=== PATIENT | male | born 1950 ===

== ENCOUNTER 2025-02-12 11:32 | Outpatient (AMB) | payer MEDICARE, SELFPAY ==
[2025-02-12 11:41] VITALS: BMI 31.4
--- NOTE | 2025-02-12 11:41 | A.PHYSOV_ITS ---
Vital Signs 02/12/25 11:41 Height 5 ft 11 in Weight 225 lb BMI 31.4 Intake Visit Reasons: Back and leg pain Intake Note: Patient is a 74 year old male here for back and leg pain. Submarine Operator Required: No Allergies hydrochlorothiazide Allergy (Unknown, Verified 02/12/25 11:40) Unknown HPI Comments Details: Mr. Rosales is a 74-year-old male seen in evaluation today for severe spinal canal stenosis at L4-5 as well as lumbar radiculitis. Patient underwent his last bilateral L4 TFESI 08/28/2023 with over a year's worth of greater than 50% reduction of his pain. Patient reports that his pain had returned despite performing his physician directed home exercise plan. He has 7/10 low back pain with radiation into bilateral lower extremities in the L4 distribution. Patient has to take frequent breaks with activity. Patient has been using Percocet sparingly for pain. He is requesting a refill. He denies any incontinence, saddle anesthesia urinary retention. [facility] Surgical History (Updated 02/07/25 @ 07:44 by Mónica Harris MA) History of carpal tunnel surgery H/O shoulder surgery H/O: knee surgery History of back surgery Social History (Updated 02/07/25 @ 07:43 by Mónica Harris MA) Alcohol intake: current Alcohol intake frequency: holidays/special occasions only Patient Tobacco Use Status: Never used Tobacco Use of substances other than those prescribed or required for medical reasons: No Current occupational status: employed Review of Systems Narrative Low back pain with radiculopathy. No incontinence, saddle anesthesia urinary retention. Physical Exam Exam Exam: Lumbar Spine: Examination of his lumbar spine, there is no visible swelling or deformity. He is tender to lower lumbar facets. He is otherwise nontender. Full range of motion was lumbar spine. He does have an increase in pain with facet loading. Special Tests: Lhermittes sign was negative Heel Toe walk is normal Left straight leg raise: Negative Right straight leg raise: Negative Special tests Santos test is negative Ganslen's test is negative SI Joint compression test negative Lorena test negative Piriformis stretch is negative Lower Extremities: Full range of motion bilateral lower extremities. No calf pain or edema. Neuro: Sensation: Intact to lower extremities bilaterally Strength L2 (Psoas): 5/5 on the left and 5/5 on the right. L3 (Quads): 5/5 on the left and 5/5 on the right. L4 (Ant tibialis): 5/5 on the left and 5/5 on the right. L5 (EHL) 5/5 on the left and 5/5 on the right. S1 (Gastroc): 5/5 on the left and 5/5 on the right. DTR L4: (Patellar) Left 1 Right 1 S1: (Achilles) Left 1 Right 1 Babinski Downgoing No pathologic clonus. No involuntary movement. Vital Signs: BMI result Body Mass Index 31.4 Assessment & Plan Assessment & Plan (1) Lumbar radiculopathy: Code(s): M54.16 - Radiculopathy, lumbar region Category: Medical (2) Lumbar spinal stenosis: Code(s): M48.061 - Spinal stenosis, lumbar region without neurogenic claudication Category: Medical Qualifiers: Neurogenic claudication status: without neurogenic claudication Qualified Code(s): M48.061 - Spinal stenosis, lumbar region without neurogenic claudication Plan Mr. Rosales is a 74-year-old male seen in evaluation today for spinal canal stenosis as well as lumbar radiculitis. 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 Patient responded very well in August of 2023 with 50% reduction of his pain for over a year from bilateral L4 TFESI. Patient's symptoms have returned despite performing his physician directed home exercise plan. Patient is requesting refill of pain medication as well as repeat bilateral L4 TFESI. We will obtain prior authorization for his injection contact him once we have done so. I reviewed his mass pat there are no red flags. Patient will use the medication sparingly. He will not operate any heavy machinery while taking Percocet. Thank you for allowing me to participate in the care of your patient. Orders: Referrals Physiatry Procedure Notification M54.16 - Radiculopathy, lumbar region Medications: New oxycodone-acetaminophen 5-325 mg (Percocet) Partial Fill upon patient request. 1 tab PO Q6H PRN 28 tabs 0RF pain 7 days M48.061 - Spinal stenosis, lumbar region without neurogenic claudication, M54.16 - Radiculopathy, lumbar region Coding Level of Care Code Est Pt Level 4 (12031) Diagnoses Lumbar radiculopathy M54.16 Spinal stenosis of lumbar region without neurogenic claudication M48.061 Neurogenic claudication status: without neurogenic claudication
--- OUTSIDE RECORDS SUMMARY | 2025-02-12 13:16 | XMS_ITS | Clinical Summary ---
Author Organization [facility] Address [address] [place] [address] Care Team Providers Care Tool Design Draftsperson Name Role Phone Igor Harman MD Primary Care Provider Allergies Active Allergy Reactions Criticality Noted Date Comments Hydrochlorothiazide Other (See Comments) Low 2016 cramps Medications amLODIPine (NORVASC) 5 MG tablet amlodipine 5 mg tablet TAKE 1 TABLET BY MOUTH EVERY DAY Active atorvastatin (LIPITOR) 10 MG tablet atorvastatin 10 mg tablet TAKE 1 TABLET BY MOUTH EVERY DAY Active losartan (COZAAR) 50 MG tablet losartan 50 mg tablet TAKE 1 TABLET BY MOUTH EVERY DAY Active OMEprazole (PriLOSEC) 20 MG capsule omeprazole 20 mg capsule,delayed release TAKE 1 CAPSULE BY MOUTH EVERY DAY Active naproxen (NAPROSYN) 500 MG tablet naproxen 500 mg tablet TAKE 1 TABLET BY MOUTH TWICE A DAY WITH MEALS Active traZODone (DESYREL) 100 MG tablet trazodone 100 mg tablet Active albuterol (PROVENTIL HFA; VENTOLIN HFA) 108 (90 Base) MCG/ACT inhalerIndicati ons:Viral URI with cough,Wheeze Inhale 2 puffs every 4 (four) hours as needed for wheezing. 18 g 3 Active Additional Information Patient not taking.Reported on 12/16/2024 fluticasone (FloVENT HFA) 110 mcg/puff inhalerIndicati ons:Viral URI with cough,Wheeze Inhale 1 puff 2 (two) times a day. 12 g 3 Active guaiFENesin-cod eine liquidIndicatio ns:Viral upper respiratory tract infection Take 5 mL by mouth every 4 (four) hours as needed for cough. 120 mL 3 Active Additional Information Patient not taking.Reported on 12/16/2024 metoPROLOL SUCCINATE (TOPROL-XL) 25 MG 24 hr tablet Take 25 mg by mouth daily. Active albuterol (PROVENTIL HFA; VENTOLIN HFA) 108 (90 Base) MCG/ACT inhalerIndicati ons:Bronchitis Inhale 2 puffs 4 times daily (every 6 hours) as needed for wheezing. 1 each 5 Active Additional Information Patient not taking.Reported on 12/16/2024 meclizine (ANTIVERT) 25 MG tabletIndicatio ns:Vertigo Take 1 tablet (25 mg total) by mouth 3 (three) times a day as needed for dizziness. 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 Mitral regurgitation 03/02/2023 Overview (06/20/2024): Moderate 03/08 Insomnia 05/27/2020 Vertigo 05/27/2020 Spinal stenosis 06/05/2015 Burning sensation of foot 07/29/2014 Overview (06/20/2024): Numbness bottom both feet Knee pain 06/12/2014 CTS (carpal tunnel syndrome) 01/24/2014 Hypercholesteremia 05/25/2013 Overview (06/20/2024): 05/27 letter sent Diverticulitis 11/06/2009 GERD (gastroesophageal reflux disease) 0 Overview (06/20/2024): EGD 02/04 Hypertension 11/06/2009 Overview (06/20/2024): Intolerant hydrochlorothiazide (leg cramps) ?intol lisinipril 40 Encounters Date Type Department Care Team Description 12/16/2024 2:30 PM EST Office Visit [facility] [address] [id number] Gentry Bello MD Devitt, Anna C, APRN Vertigo (Primary Dx); Acute bacterial sinusitis from Last 3 Months Social History Tobacco Use Types Packs/Day Years Used Date Smoking Tobacco: Never Smokeless Tobacco: Never Alcohol Use Standard Drinks/Week Comments Not Currently 0 (1 standard drink = 0.6 oz pur e alcohol) Sex and Gender Information Value Date Recorded Sex Assigned at Not on file Legal Sex Male 12:57 PM EDT Gender Identity Not on file Sexual Orientation Not on file Last Filed Vital Signs Vital Sign Reading Time Taken Comments Blood Pressure 141/87 12/16/2024 2:41 PM EST Pulse 86 12/16/2024 2:41 PM EST Temperature 36.7 C (98 F) 12/16/2024 2:41 PM EST Respiratory Rate 16 12/16/2024 2:41 PM EST Oxygen Saturation 97% 12/16/2024 2:41 PM EST Inhaled Oxygen Concentration - - Weight 102 kg (225 lb) 06/20/2024 11:45 AM EDT Height 180.3 cm (5' 11 ) 06/20/2024 11:45 AM EDT Body Mass Index 31.38 06/20/2024 11:45 AM EDT Plan of Treatment Health Maintenance Due Date Last Done Comments Advance Care Planning 1950 Hepatitis C Virus Screening 1950 DTaP/Tdap/Td Vaccines (1 - Tdap) 12/29/1971 Pneumococcal Vaccines 50+ (1 of 2 - PCV) 12/29/1971 Colonoscopy 1997 RSV Vaccine 50 years and older and Patients (1 - Risk 50-74 years 1-dose series) 2002 Zoster (Shingles) Vaccine (1 of 2) 2002 Influenza Vaccine 09/13/2024 11/28/2023, , 10/25/2022, Additional history exists COVID-19 Vaccine ( season) 2024 10/30/2022, 12/10/2021 Hepatitis B Vaccines Aged Out No long er eligible based on patient's age to complete this topic Insurance [facility] MEDICARE MEDICARE PART A & B Care Teams Tool Design Draftsperson Relationship Specialty Start Date End Date Igor Harman MD [address] [place] [address] AM[place] Pichardo [id number] PCP - General 06/20/24
--- OUTSIDE RECORDS SUMMARY | 2025-02-12 13:16 | XMS_ITS ---
Author Name [facility] Organization Unknown History of Medication Use Medication Directions Dispensed Refills Start Date End Date Stat us meclizine (ANTIVERT) 25 MG tablet Take 1 tablet (25 mg total) by mouth 3 (three) times a day as needed for dizziness. 12/16/2024 active azithromycin (ZITHROMAX) 250 MG tablet Take 2 tablets by mouth on day 1 followed by 1 tablet by mouth daily on days 2 through 5. 06/20/2024 active benzonatate (TESSALON) 200 MG capsule Take 1 capsule (200 mg total) by mouth 3 (three) times a day as needed for cough. 06/20/2024 active amoxicillin-clavula elio (AUGMENTIN) 875-125 MG per tablet Take 1 tablet by mouth 2 (two) times a day. 03/29/2024 active predniSONE (DELTASONE) 20 MG tablet Take 1 tablet (20 mg total) by mouth daily. In the AM With food. 03/29/2024 active metoPROLOL SUCCINATE (TOPROL-XL) 25 MG 24 hr tablet Take 25 mg by mouth daily. 03/25/2024 active guaiFENesin-codeine liquid Take 5 mL by mouth every 4 (four) hours as needed for cough. 07/06/2022 active albuterol (PROVENTIL HFA; VENTOLIN HFA) 108 (90 Base) MCG/ACT inhaler Inhale 2 puffs 4 times daily (every 6 hours) as needed for wheezing. 07/04/2022 active fluticasone (FloVENT HFA) 110 mcg/puff inhaler Inhale 1 puff 2 (two) times a day. 07/04/2022 active proMETHAZINE-dextro methorphan (proMETHAZINE-DM) 6.25-15 MG/5ML syrup Take 5 mL by mouth nightly as needed for cough. 07/04/2022 active amoxicillin (AMOXIL) 875 MG tablet Take 1 tablet (875 mg total) by mouth 2 (two) times a day. 05/29/2022 07/04/2022 active predniSONE (DELTASONE) 20 MG tablet Take 2 tablets (40 mg total) by mouth daily. With food. 05/23/2022 06/26/2024 active amLODIPine (NORVASC) 5 MG tablet amlodipine 5 mg tablet TAKE 1 TABLET BY MOUTH EVERY DAY active atorvastatin (LIPITOR) 10 MG tablet atorvastatin 10 mg tablet TAKE 1 TABLET BY MOUTH EVERY DAY active losartan (COZAAR) 50 MG tablet losartan 50 mg tablet TAKE 1 TABLET BY MOUTH EVERY DAY active naproxen (NAPROSYN) 500 MG tablet naproxen 500 mg tablet TAKE 1 TABLET BY MOUTH TWICE A DAY WITH MEALS active OMEprazole (PriLOSEC) 20 MG capsule omeprazole 20 mg capsule,delayed release TAKE 1 CAPSULE BY MOUTH EVERY DAY active traZODone (DESYREL) 100 MG tablet trazodone 100 mg tablet active Allergies Allergen Reaction Severity Comment Documented Date Source Statu s HYDROCHLOROTHIAZIDE OTHER (SEE COMMENTS) cramps 01/20/2017 [facility] active Problems Problem Status Onset Date Problem Type Date of Resolution Source Hypercholesteremia active 2013-05-25 ProblemAct [facility] Diverticulitis active 2009-11-[address] Frequent PVCs active 2024-05-14 ProblemAct [facility] Knee pain active 2014-06-12 ProblemAct [facility] Mitral regurgitation active 2023-03-02 ProblemAct [facility] Trigger finger, left middle finger active 2024-05-28 ProblemAct [facility] Hypertension active 2009-11-06 ProblemAct [facility] Insomnia active 2020-05-27 ProblemAct [facility] CTS (carpal tunnel syndrome) active 2014-01-24 ProblemAct [facility] Burning sensation of foot active 2014-07-29 ProblemAct [facility] CTS (carpal tunnel syndrome) active 2014-01-24 ProblemAct [facility] Class 1 obesity active 2024-06-20 ProblemAct [facility] Vertigo active 2020-05-27 ProblemAct [facility] GERD (gastroesophageal reflux disease) active 2009-11-06 ProblemAct [facility] Spinal stenosis active 2015-06-05 ProblemAct [facility] Acute bacterial sinusitis active EncounterDiagnosisAct [facility] Encounters Encounter Type Encounter Reason Primary Diagnosis Location Date Ambulatory Dizziness Dizziness [facility] 12/16/2024 Ambulatory Cough Cough [facility] 06/20/2024 Ambulatory Acute sinusitis, unspecified Acute sinusitis, unspecified [facility] 03/29/2024 Ambulatory Low back pain, unspecified Low back pain, unspecified [facility] 09/15/2023 Ambulatory Contact with and (suspected) exposure to covid-19 [facility] 07/04/2022 Ambulatory Acute suppurativ e otitis media without spontaneous rupture of ear drum, right ear [facility] 05/29/2022 Ambulatory Other specified disorders of eustachian tube, bilateral [facility] 05/23/2022 Care Team Organization Name Specialty Phone Email Start Date End Da te [facility] 12/17/2024 01/14/2025 [facility] 12/16/2024 [facility] Igor Con[facility] 06/20/2024 01/14/2025 [facility] 06/20/2024 [facility] PCP,No Primary Care 05/29/2022 01/14/2025 [facility] NO PCP Primary Care 05/29/2022 05/29/2022 [facility] 05/23/2022 01/14/2025 [facility] 05/23/2022 05/23/2022 [facility] Igor [facility] [place] [facility] 12/21/2021 10/02/2023
--- OUTSIDE RECORDS SUMMARY | 2025-02-12 13:16 | XMS_ITS | Clinical Summary ---
Author Organization [facility] [address] [facility] lding Address [address] [facility] [place] [address] Phone Care Team Providers Care Board Certified Arts Therapist Name Role Phone Radha Harman MD Primary Care Provider [phone] Allergies Active Allergy Reactions Criticality Noted Date Comments Hydrochlorothiazide 01/20/2017 cramps Medications omeprazole (PriLOSEC) [address] capsule Take 1 capsule (20 mg total) by mouth 1 (one) time each day. 4 Active losartan (COZAAR) 50 mg tablet Take 1 tablet (50 mg total) by mouth 1 (one) time each day. 90 tablet 5 Active metoprolol succinate (TOPROL-XL) 200 mg 24 hr tablet Take 1 tablet (200 mg total) by mouth 1 (one) time each day. Do not crush or chew. Active apixaban (ELIQUIS) 5 mg tablet Take 1 tablet (5 mg total) by mouth 2 (two) times a day. Active traZODone (DESYREL) 100 mg tablet TAKE 1-1&1/2 TABLETS BY MOUTH AT BEDTIME NEEDED FOR SLEEP. 135 tablet 1 5 Active atorvastatin (LIPITOR) 10 mg tablet TAKE 1 TABLET BY MOUTH EVERY DAY 90 tablet 5 Active amLODIPine (NORVASC) 5 mg tablet TAKE 1 TABLET BY MOUTH EVERY DAY 90 tablet 1 5 Active atorvastatin (LIPITOR) 10 mg tablet TAKE 1 TABLET BY MOUTH 1 TIME EACH DAY. 90 tablet 1 5 01/22/20 25 Discontinued amLODIPine (NORVASC) 5 mg tablet Take 1 tablet (5 mg total) by mouth 1 (one) time each day. 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 Pt declines eval 04/23 GERD (gastroesophageal reflux disease) 0 Overview (01/24/2024): EGD 02/04 Hypertension 11/06/2009 Overview (01/24/2024): Intolerant hydrochlorothiazide (leg cramps) ?intol lisinipril 40 Diverticulitis 11/06/2009 Sprain of sacroiliac ligament 09/22/2009 Encounters Date Type Department Care Team Description 12/18/2024 10:30 AM EST Office Visit Adult [address] [phone] Radha Harman MD Hypertension, unspecified type (Primary Dx); Hypercholesteremia; Vertigo; Atrial fibrillation, unspecified type (CMS/HCC V24, CMS/HCC V28); Screening for malignant neoplasm of prostate 12/13/2024 Telephone Adult [address] [phone] Radha Harman MD from Last 3 Months Immunizations Immunization Administration Dates Next Due COVID-19 (Moderna/Spikevax) 12yo and older 10/30/2022 Influenza Quadravalent, 0.5m l (Fluad) 65yo and older 12/02/2021 Influenza Quadravalent, 0.5m l (Fluzone High-dose) 65yo and older 10/25/2022 Influenza Quadravalent, MDCK , 0.5ml, preservative free (Flucelvax) 6mo and older 10/31/2017 Influenza Quadravalent, MDCK , 0.5ml, with preservative (Flucelvax) 6mo and older 12/02/2021,11/11/2016 Influenza trivalent, 0.5mL ( Fluad) 65yo and older 11/13/2021,11/26/2020,11/26/2019,12/11 Influenza trivalent, 0.5mL ( Fluzone High-dose) 65yo and older 11/28/2023,11/13/2021,11/26/2019,12/11 Influenza trivalent, 0.5mL, preservative free (Fluarix; FluLaval; Fluzone) ages 6mo and older (Afluria) 3 years and older 10/25/2022 Influenza trivalent, with pr eservative (Fluzone; Afluria) 6mo and older 11/26/2020,12/25/2015,12/01/2014,12/10,03/14/2013,11/12/2010 Moderna (age 6mo & older) Bi valent, COVID-19, 0.5 mL or 0.25 mL dosage 12/10/2021 Moderna Covid-19 Bivalent, O riginal + Ba.1 (Non-US Tradename Spikevax Bivalent) 12/10/2021 Moderna SARS-CoV-2 COVID-19, mRNA, LNP-S, preservative free 12/10/2021 Pneumococcal conjugate 13 va lent (Prevnar 13, PCV13) 2mo and older 10/04/2019 Pneumococcal polysaccharide 23 valent (Pneumovax 23) 2yo and older 06/01/2018 Tdap Tetanus diptheria acell ular pertussis (Boostrix; Adacel) 7yo and older 02/03/2018,05/13/2010 Surgical History Surgery Date Site/Laterality Comments KNEE SURGERY 1999 PROCEDURE: HISTORICAL KNEE SURGERY; COMMENT: meniscal injury CARPAL TUNNEL RELEASE 11/27 Bilateral PROCEDURE: HISTORICAL CARPAL TUNNEL REL BACK SURGERY 07/29 PROCEDURE: HISTORICAL BACK SURGERY; COMMENT: L3-5 decompression Medical History Medical History Date Comments Obesity, Class I, BMI 30-34.9 11/11/2016 DX :Obesity, Class I, BMI 30-34.9 Family History Medical History Relation Name Comments Colon cancer Father Coronary artery disease Mother No Known Problems Sister 1 No Known Problems Sister 2 No Known Problems Son Relation Name Status Comments Father Mother Sister 1 Alive Sister 2 Alive Son Alive Social History Tobacco Use Types Packs/Day Years Used Date Smoking Tobacco: Former Cigarettes 1 Q uit: 02/13/1983 Smokeless Tobacco: Never Tobacco Cessation:Counseling Given: Not Answered Alcohol Use Standard Drinks/Week Comments Yes 1 (1 standard drink = 0.6 oz pur e alcohol) Sex and Gender Information Value Date Recorded Sex Assigned at Not on file Legal Sex Male 9:24 AM EST Gender Identity Not on file Sexual Orientation Not on file Last Filed Vital Signs Vital Sign Reading Time Taken Comments Blood Pressure 138/63 12/18/2024 10:24 AM EST Pulse 71 12/18/2024 10:24 AM EST Temperature 36.9 C (98.4 F) 12/18/2024 10:24 AM EST Respiratory Rate 16 07/02/2024 10:18 AM EDT Oxygen Saturation - - Inhaled Oxygen Concentration - - Weight 101 kg (223 lb) 12/18/2024 10:24 AM EST Height 180.3 cm (5' 11 ) 12/18/2024 10:24 AM EST Body Mass Index 31.1 12/18/2024 10:24 AM EST Plan of Treatment Health Maintenance Due Date Last Done Comments Zoster Vaccines (1 of 2) 2002 Falls Risk Assessment 01/22/2022 Social Influencers of Health Screening 01/22/2022 Medicare Annual Wellness Visit 10/01/2023 09/30/2022 Depression Screening 02/14/2024 COVID-19 Vaccine ( season) 2025 11/10/2024, 12/10/2023, 09/13/2023, Additional history exists Hypertension/CHF/CAD Annual BMP Blood Test 10/01/2025 10/01/2024, 10/31/2023, 10/31/2023 DTaP,Tdap,and Td Vaccines (3 - Td or Tdap) 02/04/2028 02/03/2018, 05/13/2010 Cholesterol Screening (Lipid Panel) 10/01/2029 10/01/2024, 10/31/2023, 10/31/2023 Colorectal Cancer Screening: Colonoscopy 01/23/2033 01/23/2023 Hepatitis C Screening Completed 05/24/2013 Abdominal Aortic Aneurysm (AAA) Screen Completed 01/26/2018 Influenza Vaccine Completed 11/10/2024, , 10/25/2022, Additional history exists Pneumococcal Vaccine: 50+ Years Completed 12/10/2024, 10/04/2019, 06/01/2018 RSV Immunization Adult Patients Completed 12/10/2024 HIB Vaccines Aged Out No longer eligi ble based on patient's age to complete this topic HPV Vaccines Aged Out No longer eligi ble based on patient's age to complete this topic Hepatitis A Vaccines Aged Out No long er eligible based on patient's age to complete this topic Hepatitis B Vaccines Aged Out No long er eligible based on patient's age to complete this topic IPV Vaccines Aged Out No longer eligi ble based on patient's age to complete this topic MMR Vaccines Aged Out No longer eligi ble based on patient's age to complete this topic Meningococcal ACWY Vaccine Aged Out N o longer eligible based on patient's age to complete this topic Meningococcal B Vaccine Aged Out No l onger eligible based on patient's age to complete this topic RSV Immunization Patients Under 20 months Aged Out No longer eligible based on patient's age to complete this topic Varicella Vaccines Aged Out No longer eligible based on patient's age to complete this topic Procedures Procedure Name Priority Date/Time Associated Diagnosis Comments COMPREHENSIVE METABOLIC PANEL Routine 10/01/2024 10:21 AM EDT Hypertension, unspecified type Hypercholesteremia LIPID PANEL WITH REFLEX TO DIRECT LDL Routine 10/01/2024 10:21 AM EDT Hypercholesteremia COLONOSCOPY Routine 01/23/2023 ABDOMINAL AORTIC ANEURYSM SCRREN Routine 01/26/2018 HEPATITIS C SCREENING Routine 05/24/2013 from Last 3 Months or Most Recently Relevant to Health Maintenance Results * Lipid panel with reflex to direct LDL (10/01/2024 10:21 AM EDT) Cholesterol 169 0 - 200 mg/dL LAB CHEMISTRY METHOD 10/01/2024 12:32 PM EDT [facility] Triglycerides 148 0 - 150 mg/dL LAB CHEMISTRY METHOD 10/01/2024 12:32 PM EDT [facility] HDL 51 >=40 mg/dL LAB CHEMISTRY METHOD 10/01/2024 12:32 PM EDT [facility] LDL Calculated 88 0 - 100 mg/dL LAB CHEMISTRY METHOD 10/01/2024 12:32 PM EDT [facility] Comment:Estimated LDL Calcul ated using equation: Total cholesterol - HDL cholesterol - (Triglycerides/5) VLDL Cholesterol Surinder 29.6 mg/dL LAB CHEMISTRY METHOD 10/01/2024 12:32 PM EDT [facility] Non HDL Chol. (LDL+VLDL) 118 <145 mg/dL LAB CHEMISTRY METHOD 10/01/2024 12:32 PM EDT [facility] Chol/HDL Ratio 3.3 0.0 - 4.4 LAB CHEMISTRY METHOD 10/01/2024 12:32 PM EDT [facility] Blood Venous blood specimen / Unknown Venipuncture / Unknown 10/01/2024 10:21 AM EDT 10/01/2024 10:22 AM EDT us C Ubaldo Harman MD LAB BLOOD ORDERABLES Final Res ult [facility] [address] [place] [address], [place] [phone] * Comprehensive metabolic panel (10/01/2024 10:21 AM EDT) Sodium 139 133 - 145 mmol/L LAB CHEMISTRY METHOD 10/01/2024 12:32 PM [facility] Potassium 4.4 3.5 - 5.5 mmol/L LAB CHEMISTRY METHOD 10/01/2024 12:32 PM [facility] Chloride 107 96 - 110 mmol/L LAB CHEMISTRY METHOD 10/01/2024 12:32 PM [facility] CO2 29 21 - 32 mmol/L LAB CHEMISTRY METHOD 10/01/2024 12:32 PM [facility] Anion Gap 3 3 - 11 LAB CHEMISTRY METHOD 10/01/2024 12:32 PM [facility] Glucose 88 70 - 100 mg/dL LAB CHEMISTRY METHOD 10/01/2024 12:32 PM [facility] BUN 16 5 - 25 mg/dL LAB CHEMISTRY METHOD 10/01/2024 12:32 PM [facility] Creatinine 0.88 0.70 - 1.30 mg/dL LAB CHEMISTRY METHOD 10/01/2024 12:32 PM [facility] eGFR 92 >=60 mL/min/1. 73m2 LAB CHEMISTRY METHOD 10/01/2024 12:32 PM [facility] Comment:Calculation based on the Chronic Kidney Disease Epidemiology Collaboration (CKD-EPI) equation refit without adjustment for race. BUN/Creatinine Ratio 18.2 LAB CHEMISTRY METHOD 10/01/2024 12:32 PM [facility] Calcium 9.2 8.5 - 10.5 mg/dL LAB CHEMISTRY METHOD 10/01/2024 12:32 PM [facility] AST (SGOT) 19 10 - 42 unit/L LAB CHEMISTRY METHOD 10/01/2024 12:32 PM [facility] ALT (SGPT) 37 10 - 60 unit/L LAB CHEMISTRY METHOD 10/01/2024 12:32 PM EDT [facility] Alkaline Phosphatase 84 42 - 121 unit/L LAB CHEMISTRY METHOD 10/01/2024 12:32 PM EDT [facility] Total Protein 6.6 6.0 - 8.0 g/dL LAB CHEMISTRY METHOD 10/01/2024 12:32 PM EDT [facility] Albumin 3.7 3.2 - 5.0 g/dL LAB CHEMISTRY METHOD 10/01/2024 12:32 PM EDT [facility] Total Bilirubin 0.9 0.0 - 1.4 mg/dL LAB CHEMISTRY METHOD 10/01/2024 12:32 PM EDT [facility] Blood Venous blood specimen / Unknown Venipuncture / Unknown 10/01/2024 10:21 AM EDT 10/01/2024 10:22 AM EDT Radha Harman MD LAB BLOOD ORDERABLES Final Res ult [facility] [address] [place] [address], * Colonoscopy (01/23/2023) Pathologist [facility] Colonoscopy no interpretation , abstracted Anatomical Region Laterality Modality Other [facility] Provider HEALTH MAINTENANCE Final Result * Abdominal Aortic Aneurysm Screen (01/26/2018) Pathologist [facility] Abdominal Aortic Aneurysm (AAA) Screening abstracted Anatomical Region Laterality Modality Other [facility] Provider HEALTH MAINTENANCE Final Result * Hepatitis C Screening (05/24/2013) Pathologist [facility] Hepatitis C Screening abstracted [facility] Provider HEALTH MAINTENANCE Final Result from Last 3 Months or Most Recently Relevant to Health Maintenance Insurance [employer] MED[employer]ARE Care Teams Board Certified Arts Therapist Relationship Specialty Start Date End Date Radha Harman MD [address] [place] [address] [facility] [id number] PCP - General 05/13/10
== END 2025-02-12 12:15 | disposition home or self-care (01) ==
LOC: HO.HPHYS 11:32
PROVIDERS: PCP Pediatrics; Visit Provider Physician Assistant
DX: M54.16 Radiculopathy, lumbar region (principal); M48.061 Spinal stenosis, lumbar region without neurogenic claudication
CPT/HCPCS: 99214

== ENCOUNTER → 2025-02-12 11:32 | Outpatient (BNVA) | payer MEDICARE, SELFPAY | PROVIDERS: PCP Pediatrics; Visit Provider Physician Assistant | DX: M54.16 Radiculopathy, lumbar region (principal); M48.061 Spinal stenosis, lumbar region without neurogenic claudication | CPT/HCPCS: 99212 ==